=== PATIENT | male | born 1990 | race American Indian/Alaskan Native ===

== ENCOUNTER 2018-10-23 09:01 | Emergency (ER) | payer SELFPAY ==
[2018-10-23 09:15] VITALS: BP 132/84
[2018-10-23] MEDS ORDERED: NORCO 10/325 PO ONE (10:03)
[2018-10-23] MEDS ORDERED: ZOFRAN ODT PO ONE (10:04)
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
--- NOTE | 2018-10-23 10:43 | XRay Report ---
LEFT KNEE, 3 views: History: Pain. The bony architecture is intact without evidence of fracture or dislocation. No joint pathology. There is a moderate to large joint effusion on the lateral image. IMPRESSION: Normal bony structures and joint space. Moderate to large joint effusion. If internal derangement is suspected, MRI could be obtained.
--- NOTE | 2018-10-23 11:13 | Ultrasound Report ---
ULTRASOUND EXTREMITY VASCULAR LIMITED LEFT History: Hematoma left upper extremity. Findings: Targeted grayscale ultrasound with color Doppler interrogation was performed in the left forearm at a previous site of surgery. The images demonstrate a focal area of subcutaneous edema measuring approximately 2.0 x 1.3 x 0.6 cm. There is no defined fluid collection with thick schroeder. No obvious mass or soft tissue gas. Impression: Nonspecific subcutaneous edema/fluid in the left forearm as described. This could represent early cellulitis. No mature abscess or hematoma is appreciated on ultrasound. If further evaluation is needed, CT or MRI with IV contrast would provide the most information.
== END 2018-10-23 15:37 | disposition home or self-care (01) ==
LOC: ED 09:01
DX: L03.116 Cellulitis of left lower limb (principal); L03.114 Cellulitis of left upper limb; J45.909 Unspecified asthma, uncomplicated; F17.200 Nicotine dependence, unspecified, uncomplicated
CPT/HCPCS: Q0162